=== PATIENT | female | born 1995 | race American Indian/Alaskan Native ===

== ENCOUNTER 2018-03-05 19:41 | Emergency (ER) | payer SELFPAY ==
[2018-03-05 21:11] VITALS: BP 122/74
[2018-03-05 21:35] LABS: Bilirubin,Urine NEG (Negative); Blood,Urine NEG (Negative); Color,Urine Yellow (Yellow); Protein,Urine <15 mg/dL mg/dL (Negative)
[2018-03-05 21:41] LABS: HCG Qualitative,Urine Negative (Negative)
[2018-03-05] MEDS ORDERED: ROCEPHIN IM ONE (23:14)
[2018-03-05] MEDS ORDERED: XYLOCAINE 1% MPF 5 mL INFILTRATI ONE (23:14)
[2018-03-05] MEDS ORDERED: ZITHROMAX PO ONE (23:14)
--- NOTE | 2018-03-05 23:19 | Emergency Department Report ---
ED Female HPI - General Chief complaint: Urogenital-Female Stated complaint: ABDOM PAIN Time Seen by Provider: 03/05/18 22:48 Source: patient Mode of arrival: Ambulatory Limitations: No Limitations - History of Present Illness Initial comments: 22-year-old female comes in complaining of pelvic pain and burning sensation 1 week. Patient reports that she has intermittent right lower pelvic pain. She reports that she is sexually active last partner was in November she used protection she's had 2 partners in the last 6 months. She 2 para 2. She denies any vaginal discharge but reports she is used Monistat [id number] cream. She does admit to using a new soap that she thinks could have irritated her since she usually uses Vagisil body wash. Patient denies any fever or chills no nausea no vomiting no diarrhea. She reports no past medical history she currently takes vitamins [id number] has no known drug allergies and has no primary care provider. MD Complaint: dysuria, pelvic pain -: week(s) (1) Location: suprapubic Radiation: non-radiating Severity scale (0 -10): 5 Quality: sharp Consistency: intermittent Improves with: none Worsens with: none Are you Now?: No Last Menstrual Period: 02/17/18 EDC: 11/24/18 Associated Symptoms: dysuria. denies: vaginal discharge, nausea/vomiting, fever /chills, rash - Related Data Sexually active: Yes ( men 2 partners with protection) : 2 Para: 2 Previous Rx's Medication Instructions Recorded Last Taken Type metroNIDAZOLE [Metronidazole] 500 mg PO TID #21 tablet 03/06/18 Unknown Rx Allergies Allergy/AdvReac Type Severity Reaction Status Date / Time No Known Allergies Allergy Unverified 03/05/18 21:10 ED Review of Systems ROS: Stated complaint: ABDOM PAIN Other details as noted in HPI Comment: All other systems reviewed and negative Cardiovascular: denies: chest pain, palpitations Endocrine: no symptoms reported (pelvic pain) Gastrointestinal: other Genitourinary: dysuria Musculoskeletal: denies: back pain, joint swelling, arthralgia Skin: denies: rash, lesions Neurological: denies: headache, weakness, paresthesias Psychiatric: denies: anxiety, depression ED Past Medical Hx - Past Medical History Previous Medical History?: No - Surgical History Past Surgical History?: No - Social History Smoking Status: Never Smoker Substance Use Type: None - Medications Home Medications: Home Medications Medication Instructions Recorded Confirmed Last Taken Type metroNIDAZOLE [Metronidazole] 500 mg PO TID #21 tablet 03/06/18 Unknown Rx ED Physical Exam - General Limitations: No Limitations General appearance: alert, in no apparent distress - Head Head exam: Present: atraumatic, normocephalic - Respiratory Respiratory exam: Present: normal lung sounds bilaterally. Absent: respiratory distress - Cardiovascular Cardiovascular Exam: Present: regular rate, normal rhythm. Absent: systolic murmur, diastolic murmur, rubs, gallop - GI/Abdominal GI/Abdominal exam: Present: soft, normal bowel sounds. Absent: distended, tenderness, guarding, rebound, rigid - External exam: Present: normal external exam Speculum exam: Present: vaginal discharge, cervical discharge (greenish white). Absent: erythema Bi-manual exam: Present: normal bi-manual exam. Absent: cervical motion tendernes, adnexal tenderness, adnexal mass, uterine enlargement, uterine tenderness - Extremities Exam Extremities exam: Present: normal inspection - Neurological Exam Neurological exam: Present: alert, oriented X3 - Psychiatric Psychiatric exam: Present: normal affect, normal mood - Skin Skin exam: Present: warm, dry, intact, normal color. Absent: rash ED Course Vital Signs 03/05/18 21:07 Temperature 98.7 F Pulse Rate 70 Respiratory 18 Rate Blood Pressure 122/74 O2 Sat by Pulse 98 Oximetry ED Medical Decision Making - Medical Decision Making Patient's been evaluated by this provider fast track. Urinalysis is negative for any infection Urine hCG is negative Wet prep sent Chlamydia and GC sent We'll treat patient for gonorrhea and chlamydia. Rocephin 250 mg Azithromycin 1 g by mouth Discussed the patient we are waiting for prep results. Patient verbalized understanding Critical care attestation.: If time is entered above; I have spent that time in minutes in the direct care of this critically ill patient, excluding procedure time. ED Disposition Clinical Impression: Concern about STD in female without diagnosis Vaginitis Qualifiers: Chronicity: acute Qualified Code(s): N76.0 - Acute vaginitis Disposition: - TO HOME OR SELFCARE Is pt being admited?: No Does the pt Need Aspirin: No Condition: Stable Instructions: Vaginitis (ED), Bacterial Vaginosis (ED) Additional Instructions: Please use medication as prescribed. Please follow up with her primary care provider. Either return back to the Hospital medical records for further ID to obtain her results of her cultures. Prescriptions: metroNIDAZOLE [Metronidazole] 500 mg PO TID #21 tablet Referrals: PRIMARY CARE, [Primary Care Provider] - 3-5 Days Forms: Work/School Release Form(ED)
== END 2018-03-06 00:15 | disposition home or self-care (01) ==
LOC: ED 19:41
DX: N76.0 Acute vaginitis (principal)
CPT/HCPCS: 81001; 81025; 87210; 87591; 96372; 99284; J0696

== ENCOUNTER 2018-03-30 15:44 | Emergency (ER) | payer SELFPAY ==
[2018-03-30 16:09] VITALS: BP 115/67
[2018-03-30 17:01] LABS: Bacteria,Urine 1+ /HPF (Negative); Bilirubin,Urine NEG (Negative); Blood,Urine NEG (Negative); Color,Urine Yellow (Yellow); HCG Qualitative,Urine Negative (Negative); Mucus,Urine FEW /HPF; Protein,Urine <15 mg/dL mg/dL (Negative)
--- NOTE | 2018-03-30 20:21 | Emergency Department Report ---
ED Female HPI - General Chief complaint: Urogenital-Female Stated complaint: VAGINAL DISCHARGE Time Seen by Provider: 03/30/18 20:03 Source: patient Mode of arrival: Ambulatory Limitations: No Limitations - History of Present Illness Initial comments: 23-year-old female past medical history recurrent BV and yeast infections presents with complaint of white thick vaginal sit discharge consistent with yeast infections. Patient states she has been treated multiple times in the past for this. Patient is awake alert and oriented 3 fully lucid. Denies any abdominal pain pelvic pain or vaginal bleeding. Denies any dysuria or hematuria or increased urinary frequency. Patient states she was seen in the ED to 3 weeks ago and treated for BV and now believe she has a yeast infection secondary to antibiotic use. MD Complaint: vaginal discharge Onset/Timin -: week(s) Consistency: intermittent Are you Now?: No Last Menstrual Period: 03/16/18 EDC: 12/21/18 Associated Symptoms: vaginal discharge - Related Data Sexually active: No Previous Rx's Medication Instructions Recorded Last Taken Type metroNIDAZOLE [Metronidazole] 500 mg PO TID #21 tablet 03/06/18 Unknown Rx metroNIDAZOLE [Metronidazole] 500 mg PO BID #14 tablet 03/30/18 Unknown Rx Allergies Allergy/AdvReac Type Severity Reaction Status Date / Time No Known Allergies Allergy Verified 03/30/18 16:04 ED Review of Systems ROS: Stated complaint: VAGINAL DISCHARGE Other details as noted in HPI Constitutional: denies: chills, fever Eyes: denies: eye pain, eye discharge, vision change ENT: denies: ear pain, throat pain Respiratory: denies: cough, shortness of breath, wheezing Cardiovascular: denies: chest pain, palpitations Endocrine: no symptoms reported Gastrointestinal: denies: abdominal pain, nausea, diarrhea Genitourinary: as per HPI, discharge. denies: urgency, dysuria Musculoskeletal: denies: back pain, joint swelling, arthralgia Skin: denies: rash, lesions Neurological: denies: headache, weakness, paresthesias Psychiatric: denies: anxiety, depression Hematological/Lymphatic: denies: easy bleeding, easy bruising ED Past Medical Hx - Past Medical History Previous Medical History?: No - Surgical History Past Surgical History?: No - Social History Smoking Status: Never Smoker Substance Use Type: None - Medications Home Medications: Home Medications Medication Instructions Recorded Confirmed Last Taken Type metroNIDAZOLE [Metronidazole] 500 mg PO TID #21 tablet 03/06/18 Unknown Rx metroNIDAZOLE [Metronidazole] 500 mg PO BID #14 tablet 03/30/18 Unknown Rx ED Physical Exam - General Limitations: No Limitations General appearance: alert, in no apparent distress - Head Head exam: Present: atraumatic, normocephalic - Eye Eye exam: Present: normal appearance - ENT ENT exam: Present: mucous membranes moist - Neck Neck exam: Present: normal inspection - Respiratory Respiratory exam: Present: normal lung sounds bilaterally. Absent: respiratory distress - Cardiovascular Cardiovascular Exam: Present: regular rate, normal rhythm. Absent: systolic murmur, diastolic murmur, rubs, gallop - GI/Abdominal GI/Abdominal exam: Present: soft, normal bowel sounds - Speculum exam: Present: vaginal discharge - Extremities Exam Extremities exam: Present: normal inspection - Back Exam Back exam: Present: normal inspection - Neurological Exam Neurological exam: Present: alert, oriented X3 - Psychiatric Psychiatric exam: Present: normal affect, normal mood - Skin Skin exam: Present: warm, dry, intact, normal color. Absent: rash ED Course Vital Signs 03/30/18 16:05 Temperature 98.8 F Pulse Rate 97 H Respiratory 16 Rate Blood Pressure 115/67 O2 Sat by Pulse 98 Oximetry ED Medical Decision Making - Medical Decision Making A/P: BV, vaginal candidiasis 1- 1 dose of Diflucan 2- metronidazole course 3- patient was recently tested for chlamydia and gonorrhea was negative. States she has not been sexually active. No clinical signs of urethritis or cervicitis. I emphasized the importance of follow-up with [facility] for the patient Critical care attestation.: If time is entered above; I have spent that time in minutes in the direct care of this critically ill patient, excluding procedure time. ED Disposition Clinical Impression: Vaginal discharge Disposition: DC-01 TO HOME OR SELFCARE Is pt being admited?: No Does the pt Need Aspirin: No Condition: Stable Instructions: Bacterial Vaginosis (ED), Vulvovaginal Candidiasis (ED) Prescriptions: metroNIDAZOLE [Metronidazole] 500 mg PO BID #14 tablet Referrals: [facility] [Provider Group] - 3-5 Days [facility] [Provider Group] - 3-5 Days [facility] [Provider Group] - 3-5 Days [facility] [Provider Group] - 3-5 Days Time of Disposition: 20:35
[2018-03-30] MEDS ORDERED: DIFLUCAN PO ONE (20:32)
== END 2018-03-30 20:45 | disposition home or self-care (01) ==
LOC: ED 15:44
DX: N89.8 Other specified noninflammatory disorders of vagina (principal)
CPT/HCPCS: 81001; 81025; 87210